=== PATIENT | female | born 1990 | race Two or more races ===

== ENCOUNTER 2021-05-17 10:25 | Outpatient (CLI) | payer OTHER ==
[~2021-05-17 10:25] MED LIST: FLOVENT DISKU100 MCG IH; INTESTINEX680 MG PO; TESSALON PERLE100 M1 PO; TUSSIONEX PENNKI5 ML PO; ZITHROMAX200 MG PO
== END 2021-05-17 10:50 | disposition home or self-care (01) ==
LOC: PPH VACUNA 10:25
PROVIDERS: ATTEND Emergency Medicine Pediatric Emergency Medicine
DX: Z23 Encounter for immunization (principal)